=== PATIENT | male | born 1985 | race Caucasian/White ===

== ENCOUNTER 2024-09-01 12:58 | Emergency (ER) | payer OTHER ==
[2024-09-01] MEDS ORDERED: Sodium Chloride 0.9% 10 ML Syringe FLUSH PRN (13:21)
[2024-09-01] MEDS: Sodium Chloride 0.9% 1,000 ML IV SCH (13:41)
[2024-09-01 13:51] LABS: BASOPHILS PERCENT AUTO 0.4 % (0.0-1.0); EOSINOPHILS ABSOLUTE AUTO 1.1 K/mm3 (0.0-0.4); EOSINOPHILS PERCENT AUTO 13.9 % (0.0-6.0); HEMATOCRIT 19.3 % (42.0-52.0); IMMATURE GRAN ABSOLUTE AUTO 0.04 K/mm3 (0.00-0.05); IMMATURE GRAN PERCENT AUTO 0.5 % (0.0-0.4); LYMPHOCYTES ABSOLUTE AUTO 1.4 K/mm3 (1.0-4.8); LYMPHOCYTES PERCENT AUTO 18.2 % (24.0-44.0); MEAN CORPUSCULAR HEMOGLOBIN 17.6 pg (28.0-32.0); MEAN CORPUSCULAR VOLUME 60.5 fl (83.0-99.0); MEAN PLATELET VOLUME 8.9 fl (9.4-12.4); MONOCYTES ABSOLUTE AUTO 0.5 K/mm3 (0.0-0.8); NEUTROPHILS ABSOLUTE AUTO 4.6 K/mm3 (1.8-7.7); PLATELET COUNT,PLT 384 K/mm3 (150-400); RED BLOOD CELL COUNT 3.19 M/mm3 (4.52-5.90); WHITE BLOOD CELL COUNT,WBC 7.62 K/mm3 (3.9-11.3)
[2024-09-01 13:53] LABS: HEMOGLOBIN 5.6 gm/dl (14.0-18.0)
[2024-09-01 14:15] LABS: INR 1.07; PROTHROMBIN TIME 11.3 SECONDS (9.7-12.0)
[2024-09-01] MEDS: Pantoprazole 40 MG Vial IVPUSH ONE (14:15)
[2024-09-01 14:16] LABS: PTT,PARTIAL THROMBOPLSTIN TIME 22.9 SECONDS (21.7-31.4)
[2024-09-01 14:21] LABS: A/G RATIO 0.8 (1-2); ALBUMIN 3.2 g/dl (3.4-5.0); ANION GAP 10.3 (5-15); BILIRUBIN TOTAL 0.8 mg/dL (0.2-1.0); CALCIUM 8.7 mg/dL (8.5-10.1); EST CRCL DRUG DOSING (CG) 109.93 mL/min; POTASSIUM,K 3.3 mEq/L (3.5-5.1); PROTEIN TOTAL,TP 7.1 g/dl (6.4-8.2)
[2024-09-01] MEDS ORDERED: Sodium Chloride 0.9% 250 ML ONE ×2 (15:21→17:28)
[2024-09-01 20:08] LABS: HEMATOCRIT 26.3 % (42.0-52.0); HEMOGLOBIN 7.8 gm/dl (14.0-18.0)
[2024-09-01 21:08] VITALS: BP 121/54; PULSE 80
== END 2024-09-01 21:07 | disposition home or self-care (01) ==
LOC: JD.ED 12:58
DX: D50.9 Iron deficiency anemia, unspecified (principal)
CPT/HCPCS: 36415; 36430; 80053; 85014; 85018; 85025; 85610; 85730; 86850; 86900; 86901; 86922; 93005; 96361; 96374; 99283; 99284-25; J2470; J7030; P9016

== ENCOUNTER 2024-09-07 10:00 | Day surgery (SDC) | payer OTHER ==
[2024-09-07] MEDS: Lactated Ringers 1,000 ML IV SCH (11:20)
[2024-09-07] MEDS ORDERED: propofoL 500 MG/50 ML 50 ML ONE (12:09)
[2024-09-07] MEDS ORDERED: dexmedeTOMIDine HCl 200 MCG/2 ML SDV ONE (12:09)
[2024-09-07] MEDS ORDERED: Simethicone Drops 40 MG/0.6 ML 30 ML Bottle ONE (13:09)
[2024-09-07] MEDS: Sodium Chloride 0.9% 10 ML Syringe FLUSH PRN (14:03)
[2024-09-07] MEDS: Iopamidol 612 MG/ML 30 ML SDV IVPUSH ONE (14:03)
[2024-09-07] MEDS: Iopamidol 612 MG/ML 100 ML Bottle IVPUSH ONE (14:03)
[2024-09-07 15:13] VITALS: BP 130/78; PULSE 78
== END 2024-09-07 14:35 | disposition home or self-care (01) ==
LOC: JD.SDS 10:00
PROVIDERS: ATTEND Surgery
DX: D64.9 Anemia, unspecified (principal); C18.2 Malignant neoplasm of ascending colon; K20.90 Esophagitis, unspecified without bleeding
CPT/HCPCS: 43239; 45380; 45381; 71260; 74177; A9270; J2704; J7120; Q9967; 00813